=== PATIENT | female | born 1955 | race Caucasian/White ===

== ENCOUNTER 2017-02-24 10:02 | Emergency (ER) | payer OTHER | END 2017-02-24 12:18 | disposition home or self-care (01) | LOC: ER1 10:02 | DX: S83.92XA Sprain of unspecified site of left knee, initial encounter (principal); I10 Essential (primary) hypertension; E07.9 Disorder of thyroid, unspecified; Z88.2 Allergy status to sulfonamides; Z79.899 Other long term (current) drug therapy; Z91.041 Radiographic dye allergy status; W01.0XXA Fall on same level from slipping, tripping and stumbling without subsequent striking against object, initial encounter | CPT/HCPCS: 72170; 73564; 73610; 99283 ==

== ENCOUNTER → 2022-07-13 | Outpatient (CLI) | payer MEDICARE, OTHER | LOC: KOH-I 10:35 | DX: M25.561 Pain in right knee (principal) | CPT/HCPCS: 73562 ==